=== PATIENT | female | born 1955 | race Caucasian/White ===

== ENCOUNTER 2019-12-18 11:51 | Emergency (ER) | payer MEDICARE ==
--- NOTE | 2019-12-18 11:49 | EDM.PDOC ---
ED HPI GENERAL MEDICAL PROBLEM - General Stated Complaint: AMBULANCE Time Seen by Provider: 12/18/19 11:35 Source of Information: Reports: Patient History Limitations: Reports: No Limitations - History of Present Illness INITIAL COMMENTS - FREE TEXT/NARRATIVE: This 64 yo female patient was brought to the ED by [facility] due to a fall from a stool. EMS reports the stool had 2 steps and the patient fell straight back off the stool onto her back. The patient has not been able to move since the fall. The patient was placed on a long spine board to move her out of the basement to the ambulance cot. The patient arrived in the ED on the long spine board with no c-spine precautions. The patient reports she has no neck pain, did not hit her head and had no loss of consciousness before, during or after the incident. Onset: Today Onset Date: 12/18/19 Duration: Constant Location: Reports: Back (lower back ), Pelvis Quality: Reports: Ache, Sharp Severity: Severe Improves with: Reports: Rest Worsens with: Reports: Movement Context: Reports: Trauma (fall from stool ) Associated Symptoms: Reports: No Other Symptoms Treatments DOCKING PILOT: Reports: Other Medication(s) (Fentanyl (50 mcg) by EMS) Lower Back Pain Score (Numeric/FACES): 8 - Related Data Allergies Allergy/AdvReac Type Severity Reaction Status Date / Time ondansetron [From Zofran] Allergy Nausea Verified 12/18/19 15:20 ED ROS GENERAL - Review of Systems Review Of Systems: Comprehensive ROS is negative, except as noted in HPI. ED EXAM,LOWER BACK PAIN/INJURY - Physical Exam Exam: See Below Exam Limited By: No Limitations General Appearance: Alert, WD/WN, Moderate Distress Eye Exam: Bilateral Eye: EOMI, Normal Inspection, PERRL Ears: Normal External Exam, Normal Canal, Hearing Grossly Normal, Normal TMs Nose: Normal Inspection, Normal Mucosa, No Blood Throat/Mouth: Normal Inspection, Normal Lips, Normal Teeth, Normal Gums, Normal Oropharynx, Normal Voice, No Airway Compromise Head: Atraumatic, Normocephalic Neck: Normal Inspection, Supple, Non-Tender, Full Range of Motion Respiratory/Chest: No Respiratory Distress, Lungs Clear, Normal Breath Sounds, No Accessory Muscle Use, Chest Non-Tender Cardiovascular: Normal Peripheral Pulses, Regular Rate, Rhythm, No Edema, No Gallop, No JVD, No Murmur, No Rub GI/Abdominal: Normal Bowel Sounds, Soft, Non-Tender, No Organomegaly, No Distention, No Abnormal Bruit, No Mass (Female) Exam: Deferred Rectal (Female) Exam: Deferred Back Exam: Paraspinal Tenderness, Vertebral Tenderness Extremities: Normal Inspection, Other (tenderness over the pelvis with palpation ) Neurological: Alert, Normal Mood/Affect, Normal Dorsiflexion, CN II-XII Intact, Oriented x 3 Psychiatric: Normal Affect, Normal Mood Skin Exam: Warm, Dry, Intact, Normal Color, No Rash Lymphatic: No Adenopathy Course - Vital Signs Last Recorded V/S: Last Vital Signs Temp 36.4 C 12/18/19 11:45 Pulse 67 12/18/19 11:45 Resp 16 12/18/19 11:45 BP 122/85 12/18/19 11:45 Pulse Ox 100 12/18/19 11:45 - Orders/Labs/Meds Meds: Medications Discontinued Medications Generic Name Dose Route Start Last Admin Trade Name Freq PRN Reason Stop Dose Admin Hydromorphone HCl 0.5 mg 12/18/19 11:38 12/18/19 11:54 Dilaudid IVPUSH 12/18/19 11:39 0.5 mg ONETIME ONE Administration Hydromorphone HCl 0.5 mg 12/18/19 14:37 12/18/19 14:51 Dilaudid IVPUSH 12/18/19 14:38 0.5 mg ONETIME ONE Administration Metoclopramide HCl 5 mg 12/18/19 16:04 12/18/19 16:10 Reglan IVPUSH 12/18/19 16:05 5 mg ONETIME ONE Administration Ondansetron HCl 4 mg 12/18/19 12:18 Zofran IVPUSH 12/18/19 12:19 ONETIME ONE Departure - Departure Time of Disposition: 16:41 Disposition: DC/Tfer to Acute Hospital 02 Condition: Poor, Serious Clinical Impression: Compression fracture of L2 Qualifiers: Encounter type: initial encounter Qualified Code(s): S32.020A - Wedge compression fracture of second lumbar vertebra, initial encounter for closed fracture - Discharge Information *PRESCRIPTION DRUG MONITORING PROGRAM REVIEWED*: Not Applicable *COPY OF PRESCRIPTION DRUG MONITORING REPORT IN PATIENT JAYLA: Not Applicable Forms: Interfacility Transfer EMTALA Care Plan Goals: Discussed the patient's history, examination, x-ray results, CT results and treatments with Dr. Archuleta (ED provider at [facility]). Dr. Archuleta accepted the patient for continued evaluation and further management. The patient will be transported by [facility]. Sepsis Event Note - Focused Exam Vital Signs: Vital Signs Temp Pulse Resp BP Pulse Ox 12/18/19 11:45 36.4 C 67 16 122/85 100 Date Exam was Performed: 12/18/19 Time Exam was Performed: 16:40
[~2019-12-18 11:51] MED LIST: HYDROmorphone 0.5 MG/0.5 ML Syringe IVPUSH ONE
[2019-12-18] MEDS ORDERED: Ondansetron 4 MG/2 ML SDV IVPUSH ONE (12:18)
--- NOTE | 2019-12-18 12:47 | CR ---
EXAMINATION: Lumbar Spine 2 or 3V SEX: Female AGE: 64 years CLINICAL HISTORY: 64-year-old female injured in FALL onto lower back (pain). INTERPRETATION: 1. *Subtle decreased vertical height L2 vertebral body, anteriorly. Significance? No comparison films. 2. Homogeneous normal bone mineral density for age and gender and no sign of other lumbar fracture or dislocation (spondylolisthesis). 3. Minimal marginal spondylosis. Normal intervertebral disc spacing. 4. Symmetric spacing normal-appearing SI and hip joints.
--- NOTE | 2019-12-18 12:52 | CR ---
EXAMINATION: Pelvis 1V SEX: Female AGE: 64 years CLINICAL HISTORY: 64-year-old female injured FALL onto lower back (pain). "Subtle compression L2 vertebral body". INTERPRETATION: 1. AP pelvis unremarkable. 2. Normal bone mineral density for age and gender. 3. Symmetric normal appearing SI and hip joints without arthritic degenerative change. 4. No sign of pathologic skeletal lesion, pelvic or either hip fracture/dislocation. 5. No foreign bodies. CONCLUSION: No fractures pelvis.
[2019-12-18] MEDS ORDERED: HYDROmorphone 0.5 MG/0.5 ML Syringe IVPUSH ONE ×2 (14:37→17:05)
[2019-12-18] MEDS ORDERED: Metoclopramide 10 MG/2 ML SDV IVPUSH ONE ×2 (16:04→17:05)
--- NOTE | 2019-12-18 16:12 | CT ---
EXAMINATION: Lumbar Spine wo Cont SEX: Female AGE: 64 years CLINICAL HISTORY: 64-year-old female complaining of low back pain (recent fall). Scan technique: Volume acquisition of data emergency unenhanced CT scan of the lumbar spine and sacrum obtained with the patient lying supine on the Siemens multislice scanner [place], [place]. All data archived in the PACS system for storage, reformatting axial/sagittal/coronal planes and study. No comparison exams immediately available. INTERPRETATION: Abnormal. 1. Generalized mild bony demineralization consistent with age and gender. 2. Subtle (15-20%) decreased anterior height of the body L2 vertebra suggests hyperflexion trauma and compression FRACTURE. 3. No sign of other lumbar, lower thoracic or upper sacral fracture. No spondylolisthesis. 4. Scattered small marginal spur formation (spondylosis) indicating chronic arthritis. 5. Endplate sclerosis and marginal spondylosis associated with mild intervertebral disc space narrowing at the lowest L5-S1 level i.e. chronic lower lumbar disc disease. CONCLUSION: Suspicion L2 vertebral body fracture (see above) confirmed. Clinical point tenderness? Chronic mild arthritic changes and osteopenia.
== END 2019-12-18 17:30 ==
LOC: DL.ED 11:51
DX: S32.029A Unspecified fracture of second lumbar vertebra, initial encounter for closed fracture (principal); Z88.8 Allergy status to other drugs, medicaments and biological substances; W08.XXXA Fall from other furniture, initial encounter
CPT/HCPCS: 72100; 72131; 72170; 96374; 96375; 96376; 99285; J1170; J2765

== ENCOUNTER 2020-08-03 06:31 | Day surgery (SDC) | payer MEDICARE ==
[~2020-08-03 06:31] MED LIST changes: +Dextrose 5%-0.45% NaCl 1,000 ML IV SCH; -HYDROmorphone 0.5 MG/0.5 ML Syringe IVPUSH ONE; +Sodium Chloride 0.9% 10 ML Syringe FLUSH PRN
[2020-08-03] MEDS ORDERED: Propofol 200 MG/20 ML SDV IV ONE ×2 (06:32)
--- NOTE | 2020-08-03 10:17 | OR ---
DATE: 08/03/2020 PROCEDURE: Total colonoscopy. INSTRUMENT USED: PCF-H190DL Olympus video colonoscope. PREMEDICATIONS: Provided by Anesthesiology Services. INDICATION: The patient with previous complicated diverticulitis, treated; recent abdominal pain as well as rectal bleeding. Colonoscopic examination is done for detection of any polypoid lesions and removal, endoscopic hemostasis therapy if needed. DESCRIPTION OF PROCEDURE: Initial rectal exam was unremarkable. Rigid anoscopy was normal. The colonoscope was passed with ease. Numerous scattered diverticula were noted in the distal left colon along with significant deformity, procedure prolonged a bit in the left colon to have the scope passed through the deformed area to visualize the proximal colon. The scope was passed up to the ileocecal area. Photographs were taken of the normal-appearing cecum identified by landmarks of appendiceal orifice and double-bulged ileocecal folds. No bleeding was noted from any of the visualized areas at the commencement of the examination. The bowel preparation was found to be adequate, Caldwell scale 2 in all the regions, total score 6. No stricture. No vascular ectasia. No large isolated ulcerations seen. No evidence of diffuse inflammatory bowel disease in the form of friability, contact bleeding, or ulcerations. No polyp or tumor mass identified. Probing the proximal sides of folds and flexures using adequate distention and clearing of the stool material, withdrawal of the scope was made. Cecum to rectum time over 6 minutes. No bleeding was noted from any of the visualized areas at the completion of examination. IMPRESSION: Diverticulosis. The patient tolerated the procedure well. [facility] /[id number]
== END 2020-08-03 10:15 | disposition home or self-care (01) ==
LOC: DL.ENDO 06:31
PROVIDERS: ATTEND Internal Medicine Gastroenterology
DX: K57.30 Diverticulosis of large intestine without perforation or abscess without bleeding (principal); M81.0 Age-related osteoporosis without current pathological fracture; G47.00 Insomnia, unspecified; N60.19 Diffuse cystic mastopathy of unspecified breast; Z88.8 Allergy status to other drugs, medicaments and biological substances; Z87.19 Personal history of other diseases of the digestive system; Z98.890 Other specified postprocedural states
CPT/HCPCS: 00811; 45378; J2704; J7042

== ENCOUNTER 2024-10-16 10:55 | Observation (INO) | payer MEDICARE ==
[2024-10-16] MEDS: Sodium Chloride 0.9% 10 ML Syringe FLUSH PRN (11:01)
[2024-10-16] MEDS: Iopamidol 755 Mg/ML 100 ML Bottle IVPUSH ONE (11:07)
[2024-10-16 11:09] LABS: BASOPHILS PERCENT AUTO 0.4 % (0.0-1.0); EOSINOPHILS PERCENT AUTO 1.5 % (1.0-3.0); HEMATOCRIT 44.2 % (37.0-47.0); HEMOGLOBIN 14.7 g/dL (12.0-16.0); LYMPHOCYTES PERCENT AUTO 19.2 % (20.5-50.1); MEAN CORPUSCULAR HEMOGLOBIN 30.8 pg (27.0-34.0); MEAN CORPUSCULAR HGB CONC 33.3 g/dL (33.0-35.0); MEAN CORPUSCULAR VOLUME 92.5 fL (80-100); MONOCYTES PERCENT AUTO 6.7 % (2-8); NEUTROPHILS PERCENT AUTO 72.2 % (42.2-75.2); PLATELET COUNT,PLT 200 10^3/uL (150-450); RED BLOOD CELL COUNT 4.78 10^6/uL (4.2-5.4); WHITE BLOOD CELL COUNT,WBC 6.8 10^3/uL (5.0-10.0)
[2024-10-16 11:33] LABS: LACTIC ACID 1.1 mmol/L (0.4-2.0)
[2024-10-16 11:38] LABS: ALANINE AMINOTRANSFERASE,ALT 21 U/L (14-59); ALBUMIN 4.1 g/dL (3.4-5.0); ALKALINE PHOSPHATASE 73 U/L (46-116); ANION GAP 13.5 mEq/L (7-13); ASPARTATE AMNIOTRANSFERASE,AST 19 U/L (15-37); BILIRUBIN TOTAL 0.7 mg/dL (0.2-1.0); BLOOD UREA NITROGEN,BUN 10 mg/dL (7-18); BUN/CREATININE RATIO 11.5 (No establ ref range); C-REACTIVE PROTEIN < 0.50 ng/dL (<=0.50); CALCIUM 9.6 mg/dL (8.5-10.1); CARBON DIOXIDE,CO2 29 mmol/L (21-32); CHLORIDE,CL 103 mmol/L (98-107); CREATININE 0.87 mg/dL (0.55-1.02); ESTIMATED GFR 72 mL/min (>=60); GLUCOSE RANDOM 81 mg/dL (70-99); MAGNESIUM 2.1 mg/dL (1.8-2.4); POTASSIUM,K 3.5 mmol/L (3.5-5.1); PROTEIN TOTAL,TP 8.3 g/dL (6.4-8.2); SODIUM,NA 142 mmol/L (136-145); TSH ULTRASENSITIVE 2.99 uIU/mL (0.36-3.74)
[2024-10-16 11:51] LABS: APPEARANCE,URINE CLEAR (CLEAR); BILIRUBIN,URINE NEGATIVE (NEGATIVE); GLUCOSE,URINE NEGATIVE (NEGATIVE); KETONES,URINE NEGATIVE (NEGATIVE); LEUKOCYTE ESTERASE,URINE NEGATIVE (NEGATIVE); NITRITE,URINE NEGATIVE (NEGATIVE); OCCULT BLOOD,URINE NEGATIVE (NEGATIVE); PROTEIN,URINE NEGATIVE (NEGATIVE); UROBILINOGEN,URINE 0.2 mg/dL (0.2-1.0)
[2024-10-16 11:52] LABS: COLOR,URINE STRAW (YELLOW)
[2024-10-16] MEDS: Acetaminophen 500 MG Tab PO ONE (15:39)
[2024-10-16] MEDS: Ketorolac 30 MG/ML SDV IVPUSH ONE (15:39)
[2024-10-16 15:46] LABS: GLUCOSE,CSF 48 mg/dL (40-70)
[2024-10-16 16:00] LABS: PROTEIN,CSF 66 mg/dL (15-45)
[2024-10-16] MEDS: Lidocaine 2% 20 ML MDV ONE (16:11)
[2024-10-16 16:34] LABS: TUBE NUMBER,CSF 4
[2024-10-16 16:35] LABS: TUBE VOLUME,CSF 2
[2024-10-16 16:37] LABS: APPEARANCE CSF CLEAR; COLOR,CSF COLORLESS
[2024-10-16 16:38] LABS: RBC,CSF 188; SUPERNATANT APPEAR,CSF NO XANTHOCHROMIA; WBC,CSF 1
[2024-10-16] MEDS: Lidocaine 1% 5 ML VIAL ONE (19:03)
[2024-10-16] MEDS ORDERED: Ondansetron 4 MG/2 ML SDV IVPUSH PRN (19:28)
[2024-10-16] MEDS ORDERED: Docusate Sodium 100 MG Cap PO PRN (19:28)
[2024-10-16] MEDS ORDERED: Acetaminophen 325 MG Tab PO PRN (19:28)
[2024-10-16] MEDS ORDERED: Polyvinyl Alcohol 1.4% Ophth Soln 15 ML Bottle EYEBOTH PRN (19:33)
[2024-10-16] MEDS ORDERED: DOXYLAMINE SUCCINATE 25 MG PO PRN (19:33)
[2024-10-16] MEDS ORDERED: Sodium Chloride 5% Ophth Soln 15 ML Bottle EYERT PRN (19:33)
[2024-10-16] MEDS ORDERED: Ibuprofen 200 MG Tab PO PRN (19:33)
[2024-10-16] MEDS ORDERED: Famotidine 20 MG Tab PO PRN (19:33)
[2024-10-16] MEDS: traMADol 50 MG Tab PO PRN (20:42)
[2024-10-16] MEDS: Ibuprofen 400 MG Tab PO PRN (20:43)
[2024-10-16] MEDS: LORazepam 1 MG Tab PO PRN (20:43)
[2024-10-16] MEDS ORDERED: PETROLATUM WHITE EYEBOTH SCH (21:00)
[2024-10-16] MEDS ORDERED: MINERAL OIL EYEBOTH SCH (21:00)
[2024-10-16] MEDS ORDERED: [UNRECOGNIZED DRUG - OTHER] EYEBOTH SCH (21:00)
[2024-10-17] MEDS: LORazepam 0.5 MG Tab PO ONE (01:26)
[2024-10-17] MEDS: Acetaminophen/Butalbital/Caffeine 325-50-40 MG Tab PO PRN (01:26)
[2024-10-17 06:02] LABS: BASOPHILS PERCENT AUTO 0.3 % (0.0-1.0); EOSINOPHILS PERCENT AUTO 2.9 % (1.0-3.0); HEMATOCRIT 39.2 % (37.0-47.0); HEMOGLOBIN 12.9 g/dL (12.0-16.0); LYMPHOCYTES PERCENT AUTO 30.1 % (20.5-50.1); MEAN CORPUSCULAR HEMOGLOBIN 30.5 pg (27.0-34.0); MEAN CORPUSCULAR HGB CONC 32.9 g/dL (33.0-35.0); MEAN CORPUSCULAR VOLUME 92.7 fL (80-100); MONOCYTES PERCENT AUTO 9.2 % (2-8); NEUTROPHILS PERCENT AUTO 57.5 % (42.2-75.2); PLATELET COUNT,PLT 177 10^3/uL (150-450); RED BLOOD CELL COUNT 4.23 10^6/uL (4.2-5.4); WHITE BLOOD CELL COUNT,WBC 6.2 10^3/uL (5.0-10.0)
[2024-10-17 06:17] LABS: ANION GAP 14.6 mEq/L (7-13); CALCIUM 8.3 mg/dL (8.5-10.1); CREATININE 0.86 mg/dL (0.55-1.02); EST CRCL DRUG DOSING (CG) 48.14 mL/min; POTASSIUM,K 3.6 mmol/L (3.5-5.1)
[2024-10-17] MEDS ORDERED: Non-Formulary Medication 1 Each (Calcium Acetate [Phoslo] 667 MG Cap) PO SCH (09:00)
[2024-10-17] MEDS: Enoxaparin 40 MG/0.4 ML Syringe SUBCUT SCH (09:08)
[2024-10-17] MEDS: Cholecalciferol (Vitamin D3) 25 MCG Tab PO SCH (09:08)
[2024-10-17] MEDS: Ascorbic Acid 500 MG Tab PO SCH (09:08)
[2024-10-17] MEDS: Ketorolac 30 MG/ML SDV IVPUSH ONE ×2 (11:33→11:39)
[2024-10-17] MEDS: Ketorolac 30 MG/ML SDV IM ONE (12:08)
== END 2024-10-17 11:50 | disposition home or self-care (01) ==
LOC: DL.ED 10:55 → DL.MS 18:01
PROVIDERS: ADMIT Internal Medicine; ATTEND Internal Medicine
DX: G45.4 Transient global amnesia (principal); E78.00 Pure hypercholesterolemia, unspecified; Z79.899 Other long term (current) drug therapy; Z88.8 Allergy status to other drugs, medicaments and biological substances
CPT/HCPCS: 36415; 70450; 70496; 70498; 70551; 80048; 80053; 81003; 82140; 82945; 82947; 83605; 83735; 84157; 84443; 85025; 86140; 87070; 87205; 87428-QW; 89050; 96372; 96374; 99222; 99239; 99285-25; A9270-GY; G0378; J1650; J1885; J3490; Q9967

== ENCOUNTER 2025-05-24 18:32 | Inpatient (IN) | payer MEDICARE ==
[2025-05-24] MEDS ORDERED: Sodium Chloride 0.9% 10 ML Syringe FLUSH PRN (18:53)
[2025-05-24 19:00] LABS: BASOPHILS PERCENT AUTO 0.4 % (0.0-1.0); EOSINOPHILS PERCENT AUTO 3.2 % (1.0-3.0); LYMPHOCYTES PERCENT AUTO 34.5 % (20.5-50.1); MONOCYTES PERCENT AUTO 10.5 % (2-8); NEUTROPHILS PERCENT AUTO 51.4 % (42.2-75.2); PLATELET COUNT,PLT 163 10^3/uL (150-450); RED BLOOD CELL COUNT 4.24 10^6/uL (4.2-5.4); WHITE BLOOD CELL COUNT,WBC 5.0 10^3/uL (5.0-10.0)
[2025-05-24] MEDS: Amiodarone 360 MG/200 ML 360 MG/200 ML BAG IV ONE (19:04)
[2025-05-24 19:13] LABS: INR 1.0 (0.9-1.2); PTT,PARTIAL THROMBOPLSTIN TIME 25.8 SEC (22.0-34.0)
[2025-05-24 19:24] LABS: ALANINE AMINOTRANSFERASE,ALT 21.0 U/L (14-59); ASPARTATE AMNIOTRANSFERASE,AST 21.0 U/L (15-37); BILIRUBIN TOTAL 0.5 mg/dL (0.2-1.0); BLOOD UREA NITROGEN,BUN 10.0 mg/dL (7-18); CARBON DIOXIDE,CO2 28.0 mmol/L (21-32); CHLORIDE,CL 108.0 mmol/L (98-107); CREATININE 0.78 mg/dL (0.55-1.02); EST CRCL DRUG DOSING (CG) 52.32 mL/min; GLUCOSE RANDOM 161.0 mg/dL (70-99); POTASSIUM,K 3.3 mmol/L (3.5-5.1); PROTEIN TOTAL,TP 7.0 g/dL (6.4-8.2); SODIUM,NA 145.0 mmol/L (136-145); TSH ULTRASENSITIVE 1.25 uIU/mL (0.36-3.74)
[2025-05-24 19:25] LABS: A/G RATIO 0.79; ESTIMATED GFR 81.0 mL/min (>=60)
[2025-05-24] MEDS: Iopamidol 755 Mg/ML 100 ML Bottle IVPUSH ONE (19:49)
[2025-05-24] MEDS: Diltiazem 25 MG/5 ML SDV IVPUSH ONE (20:45)
[2025-05-24] MEDS: Acetaminophen/HYDROcodone 325-5 MG Tab PO ONE (20:51)
[2025-05-24] MEDS ORDERED: D5 1/2 NS w/ 40 mEq/L KCl 1,000 ML IV SCH (22:00)
[2025-05-24] MEDS ORDERED: hydrALAZINE 20 MG/ML SDV IVPUSH PRN (22:01)
[2025-05-24] MEDS ORDERED: Acetaminophen/HYDROcodone 325-5 MG Tab PO PRN (22:01)
[2025-05-24] MEDS ORDERED: Metoprolol Tartrate 5 MG/5 ML SDV IVPUSH PRN (22:01)
[2025-05-24] MEDS: Acetaminophen/HYDROcodone 325-10 MG Tab PO PRN (23:47)
[2025-05-25] MEDS: Acetaminophen/Butalbital/Caffeine 325-50-40 MG Tab PO PRN (05:43)
[2025-05-25 06:25] LABS: BASOPHILS PERCENT AUTO 0.6 % (0.0-1.0); EOSINOPHILS PERCENT AUTO 3.0 % (1.0-3.0); LYMPHOCYTES PERCENT AUTO 36.8 % (20.5-50.1); MONOCYTES PERCENT AUTO 10.4 % (2-8); NEUTROPHILS PERCENT AUTO 49.2 % (42.2-75.2); PLATELET COUNT,PLT 179 10^3/uL (150-450); RED BLOOD CELL COUNT 3.92 10^6/uL (4.2-5.4); WHITE BLOOD CELL COUNT,WBC 5.3 10^3/uL (5.0-10.0)
[2025-05-25 06:44] LABS: INR 1.0 (0.9-1.2)
[2025-05-25 06:47] LABS: ALANINE AMINOTRANSFERASE,ALT 22.0 U/L (14-59); ASPARTATE AMNIOTRANSFERASE,AST 22.0 U/L (15-37); BILIRUBIN TOTAL 0.6 mg/dL (0.2-1.0); BLOOD UREA NITROGEN,BUN 8.0 mg/dL (7-18); CARBON DIOXIDE,CO2 28.0 mmol/L (21-32); CHLORIDE,CL 109.0 mmol/L (98-107); CREATININE 0.7 mg/dL (0.55-1.02); EST CRCL DRUG DOSING (CG) 58.3 mL/min; GLUCOSE RANDOM 94.0 mg/dL (70-99); POTASSIUM,K 4.0 mmol/L (3.5-5.1); PROTEIN TOTAL,TP 6.3 g/dL (6.4-8.2); SODIUM,NA 143.0 mmol/L (136-145)
[2025-05-25 06:52] LABS: A/G RATIO 0.85; ESTIMATED GFR 92.0 mL/min (>=60)
[2025-05-25] MEDS: Magnesium Hydroxide 400 MG/5 ML Susp 30 ML Cup PO PRN (13:43)
[2025-05-25] MEDS: Sennosides/Docusate Sodium 50-8.6 MG Tab PO PRN (20:48)
[2025-05-26 06:10] LABS: INR 1.0 (0.9-1.2)
== END 2025-05-26 12:50 | disposition home or self-care (01) | DRG 310 ==
LOC: DL.ED 18:32 → DL.MS 20:54 → OBSVTOIN 05-25 13:15
PROVIDERS: ADMIT Internal Medicine; ATTEND Internal Medicine
DX: I48.91 Unspecified atrial fibrillation (principal); I48.0 Paroxysmal atrial fibrillation; E87.8 Other disorders of electrolyte and fluid balance, not elsewhere classified; E88.09 Other disorders of plasma-protein metabolism, not elsewhere classified; H26.9 Unspecified cataract; E78.00 Pure hypercholesterolemia, unspecified; M54.9 Dorsalgia, unspecified; G89.29 Other chronic pain; M81.0 Age-related osteoporosis without current pathological fracture; E86.0 Dehydration; E87.6 Hypokalemia; R73.9 Hyperglycemia, unspecified; Z98.890 Other specified postprocedural states; Z88.8 Allergy status to other drugs, medicaments and biological substances; Z90.49 Acquired absence of other specified parts of digestive tract; Z98.51 Tubal ligation status; Z79.899 Other long term (current) drug therapy
CPT/HCPCS: 36415; 71045; 71275; 80053; 83036; 83735; 84443; 84484; 85025; 85379; 85610; 85730; 93005; 93306; 96365; 96366; 96367; 96372; 96376; 99285; 99285-25; A9270-GY; G0378; J0283; J1650; J2470; J3490; J7030; Q0169; Q9967